=== PATIENT | female | born 1980 | race Caucasian/White ===

== ENCOUNTER 2018-05-26 11:32 | Emergency (ER) | payer OTHER ==
--- NOTE | 2018-05-26 11:42 | ED ---
Abdominal Pain/Female - HPI Summary HPI Summary: LLQ pain for past few days, cramping in pelvis. worsening overnight. [facility], UA), referred here for further eval. decreased appetite, nausea. currently on menses. pain with urination. [ End ] - History of Current Complaint Chief Complaint: EDAbdPain Stated Complaint: ABD PAIN Time Seen by Provider: 05/26/18 11:39 Pain Intensity: 4 Allergies/Adverse Reactions: Allergies Allergy/AdvReac Type Severity Reaction Status Date / Time No Known Allergies Allergy Verified 05/26/18 11:38 Home Medications: Home Medications NK [No Home Medications Reported] 05/26/18 [History Confirmed 05/26/18] PMH/Surg Hx/FS Hx/Imm Hx Infectious Disease History: No Infectious Disease History: Denies: Traveled Outside the [place] in Last 30 Days Physical Exam Vital Signs On Initial Exam: Initial Vitals Temp Pulse Resp BP Pulse Ox 98.5 F 84 16 128/80 98 05/26/18 11:34 05/26/18 11:34 05/26/18 11:34 05/26/18 11:34 05/26/18 11:34 Diagnostics - Vital Signs Vital Signs Temp Pulse Resp BP Pulse Ox 05/26/18 11:34 98.5 F 84 16 128/80 98 - Laboratory Lab Statement: Any lab studies that have been ordered have been reviewed, and results considered in the medical decision making process. Discharge - Discharge Plan Referrals: Sarah Henley MARKETING COMMUNICATIONS SPECIALIST [Primary Care Provider] -
[2018-05-26 12:29] LABS: Urine Appearance Clear; Urine Bacteria Absent (Absent); Urine Bilirubin Negative (Negative); Urine Blood 2+ (Negative); Urine Color Yellow; Urine Glucose Negative (Negative); Urine Ketones Negative (Negative); Urine Nitrite Negative (Negative); Urine Protein Negative (Negative); Urine Red Blood Cell Trace(0-2/hpf) (Absent); Urine Specific Gravity 1.009 (1.010-1.030); Urine Urobilinogen Negative (Negative); Urine White Blood Cell Trace(0-5/hpf) (Absent)
[2018-05-26] MEDS: NS 0.9% 1000 ML* 1,000 ML IV ONE ×2 (12:30→13:12)
--- NOTE | 2018-05-26 12:33 | ED ---
Abdominal Pain/Female - HPI Summary HPI Summary: Patient is a 38-year-old female presenting with increasing lower abdominal pain x 3 days. The pain has progressed from cramping, to sharp pain with movement and pain on palpation, particularly to lower left side. Pain is 4/10 at rest, and "severe" with movement or palpation. Pain radiates to the back. Patient is currently menstruating, which began 05/19/17. Normal cycles every 26 days with approx. 5 days of bleeding, has noted some irregularity with this over the past year. Patient has never experienced this type of pain before, and is not similar to cramping with menstruation in the past. Patient is sexually active, with condoms as control - denies any new partners. Patient admits decreased appetite over the past 3 days. Patient denies any change in urination , bowel movements, nausea, vomiting, or diarrhea. Denies hx of PCOS, ovarian cycts, fibroids, endometriosis. Abnormal pap 8 years ago with LEEP performed. 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 - History of Current Complaint Chief Complaint: Hasmukh Stated Complaint: ABD PAIN Time Seen by Provider: 05/26/18 11:39 Hx Obtained From: Patient Hx Last Menstrual Period: 05/19/18 ?: No - as per patient Onset/Duration: Gradual Onset - increasing over 3 days Timing: Constant Severity Initially: Mild Severity Currently: Severe - 4/10 at rest, "severe" with palpation and movement Pain Intensity: 4 Pain Scale Used: 0-10 Numeric Location: Diffuse, Discrete At: LLQ Radiates: Yes Radiates to: Back Character: Sharp, Cramping Aggravating Factor(s): Movement, Other: - touch Alleviating Factor(s): Position Associated Signs and Symptoms: Positive: Back Pain, Vaginal Bleeding. Negative : Chest Pain, Constipation, Blood in Stool, Urinary Symptoms, Nausea, Vomiting, Diarrhea Allergies/Adverse Reactions: Allergies Allergy/AdvReac Type Severity Reaction Status Date / Time No Known Allergies Allergy Verified 05/26/18 11:38 PMH/Surg Hx/FS Hx/Imm Hx Previously Healthy: Yes Endocrine/Hematology History: Denies: Hx Diabetes, Hx Thyroid Disease, Hx Anemia Cardiovascular History: Denies: Hx Hypercholesterolemia, Hx Hypertension Respiratory History: Denies: Hx Asthma, Hx Chronic Obstructive Pulmonary Disease (COPD) History: Reports: Other Problems/Disorders - Abnormal pap 8 years ago - leep performed - normal paps since Denies: Hx Kidney Stones Infectious Disease History: No Infectious Disease History: Denies: Traveled Outside the [place] in Last 30 Days - Social History Occupation: Employed Full-time Lives: With Family Alcohol Use: None Hx Substance Use: No Substance Use Type: Reports: None Hx Tobacco Use: No Smoking Status (MU): Never Smoked Tobacco Review of Systems Positive: Chills. Negative: Fever Negative: Palpitations, Chest Pain Negative: Shortness Of Breath Positive: Abdominal Pain - Cramping, sharp pain . Negative: Vomiting, Diarrhea , Nausea Positive: flank pain. Negative: burning, pain Positive: Anxious All Other Systems Reviewed And Are Negative: Yes Physical Exam Triage Information Reviewed: Yes Vital Signs On Initial Exam: Initial Vitals Temp Pulse Resp BP Pulse Ox 98.5 F 84 16 128/80 98 05/26/18 11:34 05/26/18 11:34 05/26/18 11:34 05/26/18 11:34 05/26/18 11:34 Vital Signs Reviewed: Yes Appearance: Positive: Well-Nourished, Pain Distress - Presents crying Skin: Positive: Warm, Dry Head/Face: Positive: Normal Head/Face Inspection Eyes: Positive: EOMI Respiratory/Lung Sounds: Positive: Clear to Auscultation, Breath Sounds Present Cardiovascular: Positive: Normal, RRR Abdomen Description: Positive: Soft - Tenderness to palpation RLQ, with increased tenderness in LLQ. Bowel Sounds: Positive: Present Neurological: Positive: Normal, Sensory/Motor Intact, Alert, Oriented to Person Place, Time Psychiatric: Positive: Normal Diagnostics - Vital Signs Vital Signs Temp Pulse Resp BP Pulse Ox 05/26/18 11:34 98.5 F 84 16 128/80 98 - Laboratory Result Diagrams: 05/26/18 12:31 05/26/18 12:31 Lab Statement: Any lab studies that have been ordered have been reviewed, and results considered in the medical decision making process. Abdominal Pain Fem Course/Dx - Course Course Of Treatment: During the course of treatment, the patient is evaluated for LLQ pain which is severe and nonradiating. She has had this pain for 3 days. [facility], vaginal swabs were obtained and were all WNL. UA obtained at the time and was also WNL. She states she has been having worsening LLQ pain over the course of the past day. She is tearful on arrival. On physical examination, she is pain to palpation in the RLQ as well as the LLQ. No pain to the mid lower abdomen or suprapubically. No pain to the RUQ or LUQ. She denies any nausea at this time. She is declining any pain medications offered to her. Discussed this time will obtain a transvaginal ultrasound as well as a CT abdomen/pelvis concurrently if no findings on transvaginal ultrasound is explaining her symptoms. Continues to have vaginal bleeding, however less than over the course of the past week. CT abdomen and pelvis suggests possible colitis. Possible pelvic congestion syndrome. Possible mucosal colonic neoplasm. We'll provide Rx for Cipro and Flagyl for colitis. Advised patient to follow up with [facility] for possible pelvic congestion syndrome. Advised patient follow up with GI Dr. Munson for colonoscopy to evaluate possible neoplasm. Vital signs are stable. Labs are unremarkable. Patient understands and approves of plan. - Diagnoses Provider Diagnoses: Colitis Discharge - Sign-Out/Discharge Documenting (check all that apply): Patient Departure - Discharge Plan Condition: Stable Disposition: HOME Prescriptions: Ciprofloxacin HCl [Cipro] 500 mg PO BID 10 Days #20 tablet HYDROcodone/ACETAMIN 5-325 MG* [[place] 5-325 TAB*] 1 tab PO Q6H PRN 2 Days #6 tab MDD 3 tabs PRN Reason: Pain metroNIDAZOLE [Flagyl 500 MG TAB] 500 mg PO TID 10 Days #30 tab Patient Education Materials: Colitis (ED) Referrals: Wallace Munson DO [Doctor of Osteopathy] - Sarah Henley CATALOGING ASSISTANT [Primary Care Provider] - Bucky Soliz MD [Medical Doctor] - Additional Instructions: Take antibiotics as directed for colitis. Follow up with [facility] Dr. Soliz for further evaluation of possible pelvic congestion syndrome. Follow-up with GI Dr Saunders for further evaluation of colonic mass - Billing Disposition and Condition Condition: STABLE Disposition: Home
[2018-05-26 12:39] LABS: ABS Basophils 0 10^3/ul (0-0.2); ABS Eosinophils 0.1 10^3/ul (0-0.6); ABS Lymphocytes 1.3 10^3/ul (1.0-4.8); ABS Monocytes 0.6 10^3/ul (0-0.8); ABS Neutrophils 6.9 10^3/ul (1.5-7.7); ABS Nucleated RBC 0 10^3/ul; Eosinophil % 0.9 %; Hematocrit 39 % (35-47); Hemoglobin 13.8 g/dl (12.0-16.0); Lymphocyte % 14.5 %; Mean Corpuscular HGB Conc 35 g/dl (31-36); Mean Corpuscular Hemoglobin 30 pg (27-31); Mean Corpuscular Volume 87 fL (80-97); Mean Platelet Volume 7.6 fL (7.4-10.4); Nucleated Red Blood Cells % 0; Platelet Count 236 10^3/ul (150-450); Red Blood Count 4.54 10^6/ul (4.00-5.40); Red Cell Distribution Width 13 % (10.5-15)
[2018-05-26 13:03] LABS: HCG Pregnancy < 0.60 mIU/mL
[2018-05-26 13:14] LABS: ALT 8 U/L (7-52); AST 9 U/L (13-39); Albumin 4.4 g/dL (3.2-5.2); Albumin/Globulin Ratio 1.8 (1-3); Alkaline Phosphatase 41 U/L (34-104); Anion Gap 5 mmol/L (2-11); BUN/Creatinine Ratio 12.2 (8-20); Blood Urea Nitrogen 9 mg/dL (6-24); C Reactive Protein 88.16 mg/L (<8.01); CO2 Carbon Dioxide 27 mmol/L (22-32); Chloride 106 mmol/L (101-111); EGFR Non-African American 88.3 (>60); Globulin 2.4 g/dL (2-4); Glucose 97 mg/dL (70-100); Potassium 3.9 mmol/L (3.5-5.0); Sodium 138 mmol/L (135-145); Total Protein 6.8 g/dL (6.4-8.9)
[2018-05-26] MEDS ORDERED: Iohexol 300* (CONTRAST) 10 ML SDV IV ONE (14:35)
--- NOTE | 2018-05-26 16:14 | PN ---
Progress Note - Progress Note Date of Service: 05/26/18 Note: Patient signed out to me by LUKASZ Salinas pending results of CT abdomen pelvis. CT abdomen and pelvis positive for possible colitis. Possible colonic mucosal neoplasm with recommendation for direct visualization. Also positive for prominence of the vasculature along the broad ligament on the left, indicating possible pelvic congestion syndrome. Vital signs within normal limits. Labs unremarkable. Ultrasound transvaginal unremarkable. Patient will be discharged home in stable condition with Rx for Cipro and Flagyl to cover colitis. Also advised to follow up with [facility] [employer] [facility] [facility] for possible pelvic congestion syndrome. Also advised to follow-up with GI for colonoscopy to evaluate possible colonic mucosal neoplasm. Patient understands and approves of plan.
[2018-05-26] MEDS ORDERED: metroNIDAZOLE TAB* 250 MG PO ONE (16:26)
[2018-05-26] MEDS ORDERED: Ciprofloxacin TAB* 500 MG PO ONE (16:26)
[2018-05-26] MEDS ORDERED: Acetaminophen TAB* 325 MG PO ONE (16:27)
[2018-05-26 17:03] VITALS: BP 109/64
== END 2018-05-26 17:07 | disposition home or self-care (01) ==
LOC: ED 11:32
DX: K52.9 Noninfective gastroenteritis and colitis, unspecified (principal); R10.32 Left lower quadrant pain; M54.9 Dorsalgia, unspecified; F41.9 Anxiety disorder, unspecified
CPT/HCPCS: 36415; 74177; 76830; 80053; 81003; 81015; 83605; 84702; 85025; 86140; 87086; 96360; 99283; A9270-GY; Q9967